=== PATIENT | female | born 1955 | race Caucasian/White ===

== ENCOUNTER 2017-07-11 10:49 | Emergency (ER) | payer BC ==
[~2017-07-11] VITALS: Ht 160 cm; Wt 83.9 kg
[2017-07-11] MEDS ORDERED: CLONIDINE HCL0.1 M1 PO (11:04)
[2017-07-11] MEDS ORDERED: TRAMADOL 50MG T50 MG PO (11:13)
[2017-07-11] MEDS ORDERED: ASPIRIN ADULT L81 M3 PO (11:13)
[2017-07-11] MEDS ORDERED: HYDRALAZINE HCL25 M2 PO (11:14)
[2017-07-11] MEDS ORDERED: BACLOFEN10 MG PO (11:15)
[2017-07-11] MEDS ORDERED: TOPIRAMATE50 MG PO (11:15)
[2017-07-11] MEDS ORDERED: CHLORTHALIDONE25 MG PO (11:16)
[2017-07-11] MEDS ORDERED: DICLOFENAC SODI50 M1 PO (11:16)
[2017-07-11] MEDS ORDERED: TRAZODONE50 MG PO (11:17)
--- NOTE | 2017-07-11 11:29 | Emergency Room Report ---
History of Present Illness Time Seen by [id number] Presenting Problem in Triage Pt arrived:Walked Presenting Problem:patient reports that she was started on a new medication yesterday, clonidine, and since then has felt short of breath since. also states that when sleeping last night, she felt like she was going so deep into her sleep that she felt like she would stop breathing. Onset of symptoms date/time:07/10/1709/15/830 or onset unknown for: Treatment Prior to Arrival: [facility] Provided by: Sepsis Risk Assessment: Temp: 98.6 B/P: 192/90 MAP: 124 Pulse: 109 Resp: 22 Recent fever? N Clinical Suspician of Infection? N Mental Status: 1 - Regular (Normal Baseline) Sepsis Risk:Possible Sepsis Risk Have you (or family members/close friends) recently traveled outside the [place]? N If Yes, where/when: Have you had exposure to infectious disease within the past month? TB? Other? Specify: 61 years old white female who presented to the ED with a chief complaint of shortness of breath since he started clonidine 0.1 mg yesterday for blood pressure. This is 61 years old white female with multiple drug ALLERGIES beta blockers that was being used for her hypertension and migraine. She was seen by her primary care physician earlier last week and her blood pressure was 180/80mmhg. so she started clonidine that she fell on 07/07/17. She started the medicine on 07/10/17 and since then she has been experiencing slowly shallow breathing and drowziness. Her has to wake her up frequently to check on her. She called her primary care physician this morning with multiple to the ED and be checked. Upon arrival she was alert and oriented 3 looks in no respiratory distress, she provided the above history in details. There was a strong smoke smell in the room and her BP is 180/108 mmhg, she denied having headache neck rigidity chest pain palpitations nausea or vomiting. She denies wheezing fever or chills. She admits for congestion and lack of energy to breathe. She received a flu shot during her visit last week. I obtained her records from [facility] reviewed her past medical history including her list of ALLERGY. After seeing her list of ALLERGIES I contacted the on-call chemistry physics teacher Dr. David Tse who presented to the ED for recommendations to hep with Ms. Reese ongoing BP problem and extensive list of allergies and side effects to BP medications. Source patient, RN notes reviewed, family, old records, obtained records from [facility] primary care Exam Limitations no limitations ALLERGIES Coded Allergies: Lake Inhibitors (Intermediate, 07/11/17) Penicillins (Intermediate, 07/11/17) amlodipine (Intermediate, 07/11/17) cyclobenzaprine (Intermediate, 07/11/17) hydrochlorothiazide (Intermediate, 07/11/17) latex (Intermediate, 07/11/17) losartan (Intermediate, 07/11/17) metformin (Intermediate, loss of vision 07/11/17) pioglitazone (From ACTOS) (Intermediate, itching 07/11/17) spironolactone (Intermediate, 07/11/17) Uncoded Allergies: beta adrenergic blockers (Intermediate, 07/11/17) beta blockers (Intermediate, 07/11/17) Home Medications Reported Medications CLONIDINE HCL (Clonidine 0.1MG) 0.1 MG PO BID #120 Tramadol Hcl (Tramadol 50MG) 50 MG PO TID #90 Aspirin (Aspirin EC) 81 MG PO DAILY HYDRALAZINE HCL (Hydralazine HCl) 25 MG PO TID #90 Topiramate 50 MG PO BID #60 Baclofen 5 MG PO QID #270 Chlorthalidone 25 MG PO DAILY #90 Diclofenac Sodium 50 MG PO BID #60 Trazodone Hcl (Trazodone HCl) 50 MG PO QHS #180 History Medical History General CAD? No Angina: No [place]: No Hypertension? Yes Hyperlipidemia? Yes CHF? No DVT? No PE? No COPD? No Asthma? No Anemia? No GERD? No Gastric ulcers? No GI Bleed? No Hernia? No Thyroid Problems? No Hypothyroidism? No CVA? No Seizures? No Diabetes? Yes Insulin Dependent: No Insulin Pump: No Home FSBS? Yes Renal Insuffiency? No End Stage Renal Disease? No UTI? No Stones? No BPH? No GB Disease: No Nephritic Syndrome? No Asplenia? No Hepatitis? No Sickle Cell Disease? No Arthritis? No Migraines? No Cataracts? No Glaucoma? No MRSA? No HIV? No TB? No Anxiety? No Depression? No Cancer? 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 Respiratory see HPI, shortness of breath Cardiovascular no symptoms reported Gastrointestinal no symptoms reported Genitourinary no symptoms reported. Musculoskeletal no symptoms reported Skin no symptoms reported Psychiatric/Neurological no symptoms reported Physical Exam Vital Signs Vital Signs Date Time Temp Pulse Resp B/P Pulse O2 O2 Flow FiO2 Ox Delivery Rate 07/11 1236 97.8 107 20 179/107 96 07/11 1155 96 16 176/105 93 07/11 1054 98.6 109 22 192/90 97 General Appearance normal appearance, WD/WN Eye Exam - bilateral eye normal exam, bilateral eye PERRL, bilateral eye EOMI Ear, Nose, Throat hearing grossly normal, normal ENT inspection Neck normal inspection, non-tender, supple, full range of motion Respiratory Status Yes: trachea midline, chest symmetrical, non tender chest. No: respiratory distress. Lung Sounds bilateral: normal breath sounds, lungs clear. 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 No Results/Orders Laboratory Tests 07/11/17 1222: Sodium 140, Potassium 4.0, Chloride 102, Carbon Dioxide 33 H, BUN 15, Creatinine 0.7, Estimated Creat Clear 115, Estimated GFR (MDRD) 86, Glucose 215 H, Calcium 10.1, Total Bilirubin 0.4, AST 53 H, ALT 97 H, Alkaline Phosphatase 143 H, Creatine Kinase 82, CK-MB (CK-2) Rel Index 0.6, CK and CKMB Interp 0.5, Troponin I < 0.02, B-Natriuretic Peptide < 5, Total Protein 7.9, Albumin 3.8, Globulin 4.1 H, Albumin/Globulin Ratio 0.9 L, D-Dimer Pending, WBC 5.4, RBC 5.12, Hgb 15.4, Hct 45.7, MCV 89.1, RDW 13.0, Plt Count 229, MPV 8.8, Gran % 67.5, Gran # 3.7, Lymphocytes % 24.8, Monocytes % 4.3, Eosinophils % 2.6, Basophils % 0.8, Lymphocytes # 1.4, Monocytes # 0.2, Eosinophils # 0.1, Basophils # 0.0, PUBS MCHC 33.6, MCH 30.0 07/11/17 1215: ABG pH 7.41, ABG pCO2 (Temp Corrct 36.8, ABG pO2 (Temp Correct 73.0 L, ABG HCO3 26.2 H, ABG Total CO2 25.1, ABG O2 Sat (Calculated) 94.9, ABG Base Excess 1.1, Sterling Test ACCEPTABLE, Blood Gas Comments LEFT BRACHIAL Orders Procedure Date/time Status ELECTROCARDIOGRAM REQUEST 07/11 112 Active ARTERIAL BLOOD GAS REQUEST 07/11 1129 Active D-DIMER 07/11 112 Active CBC WITH AUTO DIFF 07/11 112 Complete CARDIAC ENZYMES 07/11 112 Complete CHEM 12 PROFILE 07/11 1129 Complete BRAIN NATRIURETIC PEPTIDE 07/11 1129 Complete 12 LEAD EKG-CASSIDY (INITIAL) 07/11 UNK Active CM/EKG CM/EKG EKG normal sinus is 96/m LEFT axis deviation and LEFT atrial enlargement and nonspecific ST segment changes due to baseline artifact. No acute findings normal [place] and QRS durations. XRAY/CT/US XRAY/CT/US XRAY chest XR interpretation by reviewed by me, discussed w/radiologist Xray Results normal/NAD Comment no acute findings on the chest x ray. Departure Departure Time of Disposition 112 Disposition Still a Patient Clinical Impression Primary Impression: Hypertension Secondary Impressions: Chronic hypertension, Hypertension, diastolic Condition STABLE Referrals David Tse MD Additional Instructions The patient remained asymptomatic without any chest pain or palpitations She was given her morning medication, her blood pressure was decreased to 170 mmhg/ 107. I consulted Dr. David Tse who presented to the ED and reviewed her records from the primary care physician including her list of extensive ALLERGIES. Dr. Tse suggested that she start some Cardizem CD 240 and pectoris 300 mg daily, and he'll provide her with coupons for financial assistance, so she can start her medications immediately and feel better. Dr. Tse will see her in the office for follow-up. Discharge Counseling Counseled pt/family regarding diagnosis, test results, medications/RX, home care, follow up needs ED Critical Care Critical Care No If Critical Care minutes are documented, the time involved in the performance of seperately reportable procedures was not counted toward critical care time documented. I directly delivered medical care to this critically ill and/or injured patient. Timely evaluation and treatment was necessary to address the significant organ system(s) dysfunction present in this patient. at [id number]
--- NOTE | 2017-07-11 12:21 | CONSULT NOTE ---
Standard Demographics Patient Demo Date of Consultation: 07/11/17 Referring Provider: Dr. Carmichael Reason for Consultation: HTN PRIMARY DIAGNOSIS: SOA, HTN Problem list Problem list: 1. HTN 2. Multiple medication allergies/intolerances 3. DM 4. HLD History of present illness: History of present illness: 61 yo WF with hypertension was seen in the ER today for SOA after starting new medication (clonidine) yesterday. Pt with intermittent headaches and SOA. Recently seen by her PCP with addition of clonidine which she started yesterday. Due to SOA she came into ER today for evaluation. She did not take her hydralazine this AM but was given an increased dose in ER today. EKG is sinus without acute changes. Past Medical History: General: Hypertension Yes CVA No Seizures No TB No COPD No Asthma No Diabetes Yes Insulin Dependent No Insulin Pump No Angina No CT No Hyperlipidemia Yes Cancer No MRSA No GB Disease No Past Surgical HX: Previous Surgery?Y Hysterectomy-Total ELBOW SURGERY Back Surgery Allergies Coded Allergies: Lake Inhibitors (Intermediate, 07/11/17) Penicillins (Intermediate, 07/11/17) amlodipine (Intermediate, 07/11/17) cyclobenzaprine (Intermediate, 07/11/17) hydrochlorothiazide (Intermediate, 07/11/17) latex (Intermediate, 07/11/17) losartan (Intermediate, 07/11/17) metformin (Intermediate, loss of vision 07/11/17) pioglitazone (From ACTOS) (Intermediate, itching 07/11/17) spironolactone (Intermediate, 07/11/17) Uncoded Allergies: beta adrenergic blockers (Intermediate, 07/11/17) beta blockers (Intermediate, 07/11/17) Home medications: Reported Medications CLONIDINE HCL (Clonidine 0.1MG) 0.1 MG PO BID #120 Tramadol Hcl (Tramadol 50MG) 50 MG PO TID #90 Aspirin (Aspirin EC) 81 MG PO DAILY HYDRALAZINE HCL (Hydralazine HCl) 25 MG PO TID #90 Topiramate 50 MG PO BID #60 Baclofen 5 MG PO QID #270 Chlorthalidone 25 MG PO DAILY #90 Diclofenac Sodium 50 MG PO BID #60 Trazodone Hcl (Trazodone HCl) 50 MG PO QHS #180 Immunization HX DT/Tetanus Unknown Family history Family HX Family Hx Insignificant No Social Hx: Smoking HX Tobacco No Alcohol Alcohol: No Hx of Drug Use Drug Use? No Review of systems: Constitutional No: no symptoms reported. Respiratory shortness of breath. Cardiovascular No no symptoms reported Gastrointestinal/Abdominal No no symptoms reported Genitourinary No: no symptoms reported. Musculoskeletal No: no symptoms reported. Neurological Yes: see HPI. Exam: Admission Vital Signs: 1ST Vital Signs Result Date Time Pulse Ox 97 07/11 1054 B/P 192/90 07/11 1054 Temp 98.6 09/ 1054 Pulse 109 09/12 1054 Resp 22 09/ 1054 Last Vital Signs: Vital Signs Result Date Time Pulse Ox 93 07/11 1155 B/P 176/105 09/ 1155 Pulse 96 09/ 1155 Resp 16 07/11 1155 Temp 98.6 07/11 1054 Exam General appearance: alert, awake, no acute distress Neck: no carotid bruit, no JVD Cardiovascular: regular rate & rhythm, no murmur Respiratory: clear to auscultation Extremities: moves all, no peripheral edema Neuro: alert, intact, oriented Plan: Assessment: 1. HTN, uncontrolled 2. DM 3. Multiple medication allergies/intolerances Recommendations: 1. Recommend discontinue clonidine, hydralazine, chlorthalidone 2. Start Tekturna 300 mg daily, RX and coupon given for reduced cost. Pt to get a dose today before leaving ER. 3. Start Diltiazem XT 240 mg daily, RX written. Pt to get a dose today before leaving ER. 4. Follow up in our clinic in 1 wk or with PCP 5. Pt seen with Dr. Tse at 1220
[2017-07-11 12:33] LABS: HEMOGLOBIN 15.4 g/dL (12.2-16.2); LYMPH # 1.4 K/mm3 (0.7-4.5); LYMPH % 24.8 % (10-50.0)
[2017-07-11 12:52] LABS: ALLEN'S TEST ACCEPTABLE; ARTERIAL ABE 1.1 MMOL/L (-2.4-+2.3); ARTERIAL TCO2 25.1 MMOL/L (23-27)
[2017-07-11 13:01] LABS: BUN 15 mg/dL (7-18); GFR (ESTIMATED) 86 ML/MIN (59-)
--- NOTE | 2017-07-11 13:05 | RADIOLOGY REPORT PS360 ---
CHEST(2 VIEWS-NOT PORTABLE) HISTORY: Shortness of air soa ORDERING PHYSICIAN: Kulwinder Carmichael MD PATIENT AGE: 61 years COMPARISON: None available FINDINGS: The cardiomediastinal silhouette and pulmonary vascularity are within normal limits. The lungs are clear without infiltrates, suspicious nodules, or pleural effusions. No acute bony abnormalities. Intrathecal stimulation device noted overlying the mid thoracic spine IMPRESSION: No acute finding
[2017-07-11 13:32] VITALS: BP 170/85
== END 2017-07-11 13:34 | disposition still patient (30) ==
LOC: ER 10:49
PROVIDERS: Emergency Medicine
DX: I10 Essential (primary) hypertension (principal); E78.5 Hyperlipidemia, unspecified; E11.9 Type 2 diabetes mellitus without complications; Z79.82 Long term (current) use of aspirin; Z79.899 Other long term (current) drug therapy; Z88.0 Allergy status to penicillin; Z88.8 Allergy status to other drugs, medicaments and biological substances; Z91.040 Latex allergy status

== ENCOUNTER → 2017-08-04 | Outpatient (CLI) | payer BC ==
[~2017-08-04] MED LIST: ASPIRIN ADULT L81 M3 PO; BACLOFEN10 MG PO; CHLORTHALIDONE25 MG PO; CLONIDINE HCL0.1 M1 PO; DICLOFENAC SODI50 M1 PO; HYDRALAZINE HCL25 M2 PO; TOPIRAMATE50 MG PO; TRAMADOL 50MG T50 MG PO; TRAZODONE50 MG PO
--- NOTE | 2017-08-04 13:48 | RADIOLOGY REPORT PS360 ---
PROCEDURE: 2-D M-mode and color Doppler study INDICATIONS FOR THE TEST: Chest pain COPD Heart Murmur Tobacco Smoking Palpitations Fatigue Syncope Edema Hypertension+Diabetes Mellitus+ Rheumatic Fever SOB ZENDEJAS Obesity Hyperlipidemia+ Family History HD Additional History PATIENT INFORMATION HEIGHT: 62 WEIGHT:186 GENDER: Female B/P:189/107 2-D/M-MODE INTERPRETATION: 2-D MEASUREMENTS OBSERVED VALUES IN CMS Right Ventricular Dimension (RVDd) 2.1 Interventricular Septum (Thickness)(IVsd) 1.1 Left Ventricular Internal Dimensions(LVIDd) 4.9 Left Ventricular Posterior Wall (Thickness)(LVPWd) 1.0 Aortic Root 2.7 Aortic Cusp Separation 1.6 Left Atrial Dimensions (LAD) 4.0 2D 1. Left atrium is mildly enlarged, left ventricle is normal size, there is mild concentric left ventricular hypertrophy present, visually estimated ejection fraction 55% with no obvious regional wall motion abnormality. 2. The right atrium and right ventricle are normal size and contractility. 3. The aortic valve is minimally thickened and fibrosed. 4. The mitral and tricuspid valve leaflets are minimally thickened. 5. Pulmonic valve is poorly visualized. 6. No significant pericardial effusion noted. DOPPLER INTERROGATION: Doppler interrogation of the aortic, mitral and tricuspid valvular presence of mild mitral and tricuspid regurgitation, tricuspid and jet velocity is insufficient for calculation of the right ventricular systolic pressure, grade 1 diastolic dysfunction seen with tissue Doppler evidence of raised left atrial pressure. CONCLUSION: 1. Mildly enlarged left atrium, normal left ventricular size, mild concentric left ventricular hypertrophy, visually estimated ejection fraction 55% with no obvious regional wall motion abnormality, grade 1 diastolic dysfunction seen with tissue Doppler evidence of raised left atrial pressure. 2. Mild mitral and tricuspid regurgitation. 3. No significant pericardial effusion noted.
== END ==
LOC: RT 12:36
DX: R06.02 Shortness of breath (principal); I10 Essential (primary) hypertension; E11.9 Type 2 diabetes mellitus without complications

== ENCOUNTER → 2017-08-23 | Outpatient (CLI) | payer BC ==
--- NOTE | 2017-08-24 14:58 | RADIOLOGY REPORT PS360 ---
History and Indications: Hypertension, diabetes, hyperlipidemia, shortness of breath, syncope and fatigue Procedure: Patient received a 0.4 mg of Lexiscan, resting heart rate was 66 bpm, resting blood pressure 1 72/87, with Lexiscan maximum heart rate achieved was 103 bpm which is less than 85% of the maximum predicted heart rate, and the blood pressure was 192/101. With Lexiscan patient complained of shortness of breath and discomfort. Electrocardiogram: Resting electrocardiogram showed sinus rhythm atrial abnormality, nonspecific ST-T changes, with Lexiscan there is less than 1.[address] segment depression noted from the baseline EKG. The EKG portion of the Lexiscan Myoview is nondiagnostic. Cardiac stress and resting SPECT images: Cardiac stress and rest SPECT images were obtained using technetium 99 Myoview 10.8 mCi at rest and 31.3 mCi at stress. Gated SPECT further analysis of segmental wall motion and calculation of the ejection fraction also done. Cardiac stress and rest SPECT images show uniform myocardial activity without any segmental perfusion abnormality, computer derived ejection fraction is over 65% with no obvious regional wall motion abnormality. Right ventricle is mildly enlarged with normal contractility. Conclusion: 1. The EKG portion of the Lexiscan Myoview is nondiagnostic. 2. No obvious scintigraphic evidence of reversible ischemia seen, visually there are ejection fraction is over 65% with no obvious regional wall motion abnormality, right ventricle is mildly enlarged with normal contractility.
== END ==
LOC: RAD 07:30
DX: R06.00 Dyspnea, unspecified (principal); I10 Essential (primary) hypertension; E78.5 Hyperlipidemia, unspecified; E11.9 Type 2 diabetes mellitus without complications; G47.33 Obstructive sleep apnea (adult) (pediatric)
CPT/HCPCS: A9502; J2785